=== PATIENT | female | born 1980 ===

== ENCOUNTER → 2017-01-26 | Outpatient (CLI) | payer BC ==
[~2017-01-26] MED LIST: IBUP-103 PO
--- NOTE | 2017-01-26 13:04 | MAMMOGRAPHY REPORT ---
UNILATERAL RIGHT DIGITAL DIAGNOSTIC MAMMOGRAM TOMOSYNTHESIS WITH CAD AND TARGETED BILATERAL ULTRASOUN CLINICAL HISTORY: 36-year-old woman presents for follow-up of right breast asymmetries. She currentl y reports lumps along the superior aspect of each breast. TECHNIQUE: Right breast tomosynthesis in addition to standard 2D mammography was performed. Current shyanne wilhelm was also evaluated with a Computer Aided Detection (CAD) system. COMPARISON: Comparison is made to exams dated: 07/28/2016 ultrasound, 07/28/2016 mammogram, and 07/01 mammogram - [facility]. BREAST COMPOSITION: The tissue of the right breast is heterogeneously dense, which may obscure small masses. FINDINGS: There is stable focal asymmetry occupying the upper outer middle and posterior right breas t. An asymmetry in the inferior middle one third of the right breast is less conspicuous comparing t o the 07/15/2016 mammograms. There are a few stable benign-appearing punctate microcalcifications. No new suspicious mass, architectural distortion or suspicious microcalcifications are identified in the right breast. Targeted ultrasound was performed in a horizontal band along the superior right breast, 3 cm from the nipple from the 10:00 through 2:00 axes. Additional targeted ultrasound was performed in the left 1 :00 and 2:00 breast in the area of palpable lumps. Incidental note is made of 2 tiny anechoic oval c ysts in the 2:00 left breast, 3 cm from the nipple, measuring 3.5 and 3.1 mm. No suspicious solid ma ss is seen on targeted ultrasound in either breast. IMPRESSION: ACR-BI-RADS CATEGORY 3: PROBABLY BENIGN, TARGETED ULTRASOUND ACR-BI-RADS CATEGORY 3: PRO BABLY BENIGN 1. A focal asymmetry in the right upper outer quadrant is stable compared to prior mammograms. The u pper outer quadrant asymmetry most likely represents the patient's baseline parenchymal pattern, barreto [place] another six-month follow-up diagnostic mammogram is read amended to ensure longer stability. 2. An asymmetry in the inferior right breast is less conspicuous, confirming benignity. 3. Palpable lumps in each superior breast demonstrate no suspicious sonographic abnormality and are most compatible with dense glandular tissue. Clinical follow-up is also recommended. Six-month follow-up bilateral diagnostic mammograms and possible ultrasound are recommended. Approximately 10% of breast cancers are not detected with mammography. A negative mammographic report should not delay biopsy if a clinically suggestive mass is present. Anastasiia Bautista M.D. ay/:01/26/2017 09:26:10 Reliability Technologist: Tracy REAVES(Molly)(M), [facility] letter sent: Follow Up Recommended 3 BI-RADS Code: ACR-BI-RADS Category 3: Probably Benign Ultrasound BI-RADS: ACR-BI-RADS Category 3: Pr obably Benign
== END | disposition home or self-care (01) ==
LOC: C.MAMM 08:12
PROVIDERS: ATTEND Family Medicine
DX: N64.89 Other specified disorders of breast (principal); N63 Unspecified lump in breast

== ENCOUNTER → 2017-06-28 | Outpatient (CLI) | payer BC | END | disposition home or self-care (01) | LOC: C.PAPS 11:10 | PROVIDERS: ATTEND Family Medicine | DX: Z01.419 Encounter for gynecological examination (general) (routine) without abnormal findings (principal) ==

== ENCOUNTER → 2017-07-21 | Outpatient (CLI) | payer BC ==
[~2017-07-21] MED LIST changes: +MECL1TAB42 PO; +ONDA4TAB10 SL
--- NOTE | 2017-07-21 12:58 | DIAGNOSTIC IMAGING REPORT ---
PELVIC COMPLETE NON OB HISTORY: 36 years-old Female [id number] acute vaginal bleeding COMPARISON: None available TECHNIQUE: Multiple real-time sonographic images of the deep pelvic structures were obtained transabdominally and transvaginally assessing grayscale appearance, color and spectral flow FINDINGS: TRANSABDOMINAL: Anteflexed uterus measures 8.1 x 3.4 x 4.8 cm. Endometrium measures 0.5 cm. No adrenal mass lesion. TRANSVAGINAL: Small nabothian cysts measuring up to 3 mm. Endometrium is homogeneous, 4 mm. Uterus appears unremarkable. Left ovary measures 3.6 x 1.8 x 2.4 cm demonstrating normal follicular changes with arterial inflow documented. Right ovary is also unremarkable, 2.4 x 1.5 x 1.6 cm with arterial inflow documented. No significant free pelvic fluid. IMPRESSION: 1. Small nabothian cysts of the cervix. Otherwise unremarkable sonographic appearance of the uterus and endometrium. 2. Bilateral ovaries are within normal limits without evidence of torsion. The above report was generated using voice recognition software. It may contain grammatical, syntax or spelling errors. Electronically signed by: Franko Hagan M.D. 07/21/2017 12:57 PM Dictated Date/Time: 07/21/2017 12:53 PM
--- NOTE | 2017-07-28 09:21 | DIAGNOSTIC IMAGING REPORT ---
PELVIC COMPLETE NON OB HISTORY: 36 years-old Female [id number] acute vaginal bleeding COMPARISON: None available TECHNIQUE: Multiple real-time sonographic images of the deep pelvic structures were obtained transabdominally and transvaginally assessing grayscale appearance, color and spectral flow FINDINGS: TRANSABDOMINAL: Anteflexed uterus measures 8.1 x 3.4 x 4.8 cm. Endometrium measures 0.5 cm. No adrenal mass lesion. TRANSVAGINAL: Small nabothian cysts measuring up to 3 mm. Endometrium is homogeneous, 4 mm. Uterus appears unremarkable. Left ovary measures 3.6 x 1.8 x 2.4 cm demonstrating normal follicular changes with arterial inflow documented. Right ovary is also unremarkable, 2.4 x 1.5 x 1.6 cm with arterial inflow documented. No significant free pelvic fluid. IMPRESSION: 1. Small nabothian cysts of the cervix. Otherwise unremarkable sonographic appearance of the uterus and endometrium. 2. Bilateral ovaries are within normal limits without evidence of torsion. The above report was generated using voice recognition software. It may contain grammatical, syntax or spelling errors. Electronically signed by: Franko Hagan M.D. 07/21/2017 12:57 PM Dictated Date/Time: 07/21/2017 12:53 PM
== END | disposition home or self-care (01) ==
LOC: C.ULTR 12:01
PROVIDERS: ATTEND Family Medicine
DX: N93.9 Abnormal uterine and vaginal bleeding, unspecified (principal); N88.8 Other specified noninflammatory disorders of cervix uteri

== ENCOUNTER → 2017-07-28 | Outpatient (CLI) | payer BC ==
[~2017-07-28] MED LIST changes: -MECL1TAB42 PO; -ONDA4TAB10 SL
--- NOTE | 2017-07-28 14:52 | MAMMOGRAPHY REPORT ---
BILATERAL DIGITAL DIAGNOSTIC MAMMOGRAM TOMOSYNTHESIS WITH CAD: 07/28/2017 CLINICAL HISTORY: Six-month follow-up of right breast asymmetry. Due for routine mammography of the left breast. The patient reports no new lumps or other current complaints. TECHNIQUE: Breast tomosynthesis in addition to standard 2D mammography was performed. Current study was also evaluated with a Computer Aided Detection (CAD) system. Bilateral CC and MLO 2-D and tomosy nthesis images were obtained. COMPARISON: Comparison is made to exams dated: 01/26/2017 mammogram, 01/26/2017 ultrasound, 07/28/2016 ultrasound, 07/28/2016 mammogram, and 07/15/2016 mammogram - [facility]. BREAST COMPOSITION: The tissue of both breasts is heterogeneously dense, which may obscure small mas ses. FINDINGS: There are no suspicious masses, calcifications, or areas of architectural distortion noted in either breast. There has been no significant interval change compared to prior exams. Regional a symmetry in the right upper outer quadrant is stable dating back to the July 2016 exam and is nu ign and felt to represent normal fibroglandular tissue. Benign-appearing left breast calcifications are stable. IMPRESSION: ACR BI-RADS CATEGORY 2: BENIGN There is no mammographic evidence of malignancy in either breast. A 1 year screening mammogram is rec ommended unless otherwise clinically indicated. The patient has been verbally notified of the result s. Approximately 10% of breast cancers are not detected with mammography. A negative mammographic report should not delay biopsy if a clinically suggestive mass is present. Melissa Yost M.D. ah/:07/28/2017 13:50:35 Services Coordinator: Erika WYNN)(Ekaterina), [facility] letter sent: Normal 1/2 BI-RADS Code: ACR BI-RADS Category 2: Benign
== END | disposition home or self-care (01) ==
LOC: C.MAMM 13:32
PROVIDERS: ATTEND Family Medicine
DX: N64.89 Other specified disorders of breast (principal)

== ENCOUNTER 2017-09-03 13:03 | Emergency (ER) | payer BC ==
[~2017-09-03] VITALS: Ht 162.6 cm; Wt 54.8 kg
[2017-09-03 13:08] VITALS: TEMP 36.3; Ht 162.6 cm; Wt 54.8 kg
[2017-09-03] MEDS ORDERED: MECLIZINE HCL 25 MG TAB PO STA (13:29)
[2017-09-03] MEDS ORDERED: SODIUM CHLORIDE 0.9% 1000ML 1,000 ML IV STA (13:29)
[2017-09-03] MEDS ORDERED: ONDANSETRON 8 MG/54 ML D5W IV STA (13:29)
--- NOTE | 2017-09-03 13:48 | DIAGNOSTIC IMAGING REPORT ---
CHEST ONE VIEW PORTABLE CLINICAL HISTORY: EVALUATE ALTERED MENTAL STATUS/WEAKNESS COMPARISON STUDY: Chest radiograph May 25, 2013. FINDINGS: Nipple shadow projects over the left lower lung. Lung volumes are normal. No pneumothorax or pleural effusion is noted. Pulmonary vascularity is normal. Cardiomediastinal silhouette is normal. IMPRESSION: No acute cardiopulmonary findings. Electronically signed by: Rashawn Salinas M.D. 09/03/2017 1:47 PM Dictated Date/Time: 09/03/2017 1:46 PM
[2017-09-03 14:02] LABS: BASO % 0.5 %; BASO ABS # 0.03 K/uL (0-0.2); EOS % 2.1 %; EOS ABS # 0.13 K/uL (0-0.5); HEMATOCRIT 44.6 % (37-47); HEMOGLOBIN 14.6 g/dL (12.0-16.0); IG# 0.01 K/uL (0.00-0.02); LYMPH % 22.5 %; LYMPH ABS # 1.36 K/uL (1.2-3.4); MEAN CELL VOLUME 88.7 fL (80-100); MEAN CORPUSCULAR HGB CONC 32.7 g/dl (32-36); MEAN PLATELET VOLUME 11.1 fL (7.4-10.4); MONO % 5.3 %; MONO ABS # 0.32 K/uL (0.11-0.59); NEUT % 69.4 %; PLATELET COUNT 222 K/uL (130-400); RED CELL DISTRIBUTION WIDTH CV 12.9 % (11.5-14.5); RED CELL DISTRIBUTION WIDTH SD 41.4 fL (36.4-46.3); WHITE BLOOD COUNT 6.05 K/uL (4.8-10.8)
--- NOTE | 2017-09-03 14:15 | DIAGNOSTIC IMAGING REPORT ---
CT OF THE HEAD WITHOUT CONTRAST CLINICAL HISTORY: Altered mental status. Weakness. Dizzy. COMPARISON STUDY: No previous studies for comparison. CT DOSE: 537.48 mGy.cm TECHNIQUE: Helical axial images of the head were obtained without IV contrast. Automated exposure control was utilized for the study. A dose lowering technique was utilized adhering to the principles of ALARA. FINDINGS: No acute intracranial hemorrhage, midline shift or mass effect is present. Brain volume is normal. Ventricular system is normal. The basilar cisterns are patent. There are no extra-axial collections. Good-white differentiation is maintained. There are no findings to suggest acute dural sinus thrombosis or acute territorial infarct. There are no significant calvarial abnormalities. Visualized portions of the sinuses and the mastoid air cells are clear. IMPRESSION: No acute intracranial findings. Electronically signed by: Rashawn Salinas M.D. 09/03/2017 2:13 PM Dictated Date/Time: 09/03/2017 2:11 PM
[2017-09-03 14:19] LABS: ALBUMIN 4.1 gm/dl (3.4-5.0); ALT/SGPT 33 U/L (12-78); BLOOD UREA NITROGEN 12 mg/dl (7-18); CALCIUM 8.9 mg/dl (8.5-10.1); CARBON DIOXIDE 28 mmol/L (21-32); CREATININE 0.69 mg/dl (0.60-1.20); GLUCOSE 100 mg/dl (70-99); LIPASE 122 U/L (73-393); POTASSIUM 3.5 mmol/L (3.5-5.1); SODIUM 137 mmol/L (136-145)
[2017-09-03 14:27] LABS: ALKALINE PHOSPHATASE 61 U/L (45-117); AST/SGOT 23 U/L (15-37); CKMB 1.3 ng/ml (0.5-3.6); TOTAL PROTEIN 7.2 gm/dl (6.4-8.2)
[2017-09-03 15:32] VITALS: BP 100/53; PULSE 68; O2SAT 98
--- NOTE | 2017-09-03 15:34 | EMERGENCY ROOM VISIT NOTE ---
History Report prepared by Didi: Luis Pardo Under the Supervision of: Dr. Leoncio Lynn D.O. First contact with patient: 13:15 Chief Complaint: VOMITING Stated Complaint: DIZZINESS,VOMITING,FAINT,EKG ABNORMAL, DOC REFERRE History of Present Illness The patient is a 36 year old female who presents to the Emergency Room with complaints of vertigo that began 2 days ago. She states she was sleeping when she woke up feeling dizzy. She states that she feels like the room is spinning and complains of nausea and vomiting. She is unable to walk upright because she feels like the room is tilting. She states that she had similar episodes of dizziness that occurred 2 years ago. She states she went to urgent care where they said her EKG was abnormal and that she should come to the ED. Source of History: patient Onset: 2 days ago Position: other (global) Timing: constant Modifying Factors (Relieving): movement Associated Symptoms: + nausea, + vomiting Note: Patient complains fo dizziness and previous episodes. Review of Systems See HPI for pertinent positives & negatives. A total of 10 systems reviewed and were otherwise negative. Social History Smoking Status: Never Smoker Marital Status: Current/Historical Medications No Active Prescriptions or Reported Meds Allergies Coded Allergies: Penicillins (Verified Allergy, Unknown, RASH, 09/03/17) Physical Exam Vital Signs Date Time Temp Pulse Resp B/P (MAP) Pulse Ox O2 Delivery O2 Flow Rate FiO2 09/03/17 15:32 68 20 100/53 98 09/03/17 13:44 64 09/03/17 13:08 36.3 59 17 117/80 100 Room Air Physical Exam VITAL SIGNS: were reviewed as above. GENERAL:Non-toxic in appearance. SKIN: Warm dry and pink. HEAD: Normocephalic and atraumatic. OROPHARYNX: Is clear and moist NECK: Supple without lymphadenopathy or meningismus. LUNGS: clear. HEART: Regular rate and rhythm. ABDOMEN: Soft and nontender. EXTREMITIES: Warm and well perfused. NEUROLOGICALLY: Awake alert and oriented without focal deficit. Cranial nerves 2 -12 are intact. There is no pronator drift. Cerebellar testing is within normal limits. There is no nystagmus. There is no facial droop. Speech is clear. Vision is grossly normal. MUSCULOSKELETAL: Good muscle tone. No evidence of trauma. Medical Decision & Procedures ER Provider Diagnostic Interpretation: Radiology results as stated below per my review and radiologist interpretation: CHEST ONE VIEW PORTABLE CLINICAL HISTORY: EVALUATE ALTERED MENTAL STATUS/WEAKNESS COMPARISON STUDY: Chest radiograph May 25, 2013. FINDINGS: Nipple shadow projects over the left lower lung. Lung volumes are normal. No pneumothorax or pleural effusion is noted. Pulmonary vascularity is normal. Cardiomediastinal silhouette is normal. IMPRESSION: No acute cardiopulmonary findings. Electronically signed by: Rashawn Salinas M.D. 09/03/2017 1:47 PM Dictated Date/Time: 09/03/2017 1:[address] OF THE HEAD WITHOUT CONTRAST CLINICAL HISTORY: Altered mental status. Weakness. Dizzy. COMPARISON STUDY: No previous studies for comparison. CT DOSE: 537.48 mGy.cm TECHNIQUE: Helical axial images of the head were obtained without IV contrast. Automated exposure control was utilized for the study. A dose lowering technique was utilized adhering to the principles of ALARA. FINDINGS: No acute intracranial hemorrhage, midline shift or mass effect is present. Brain volume is normal. Ventricular system is normal. The basilar cisterns are patent. There are no extra-axial collections. Good-white differentiation is maintained. There are no findings to suggest acute dural sinus thrombosis or acute territorial infarct. There are no significant calvarial abnormalities. Visualized portions of the sinuses and the mastoid air cells are clear. IMPRESSION: No acute intracranial findings. Electronically signed by: Rashawn Salinas M.D. 09/03/2017 2:13 PM Dictated Date/Time: 09/03/2017 2:11 PM Laboratory Results 09/03/17 13:50 Red Blood Count 5.03, Mean Corpuscular Volume 88.7, Mean Corpuscular Hemoglobin 29.0, Mean Corpuscular Hemoglobin Concent 32.7, Mean Platelet Volume 11.1, Neutrophils (%) (Auto) 69.4, Lymphocytes (%) (Auto) 22.5, Monocytes (%) (Auto) 5.3, Eosinophils (%) (Auto) 2.1, Basophils (%) (Auto) 0.5, Neutrophils # (Auto) 4.20, Lymphocytes # (Auto) 1.36, Monocytes # (Auto) 0.32, Eosinophils # (Auto) 0.13, Basophils # (Auto) 0.03 09/03/17 13:50 Test 09/03/17 13:50 09/03/17 14:30 White Blood Count 6.05 K/uL (4.8-10.8) Red Blood Count 5.03 M/uL (4.2-5.4) Hemoglobin 14.6 g/dL (12.0-16.0) Hematocrit 44.6 % (37-47) Mean Corpuscular Volume 88.7 fL (80-100) Mean Corpuscular Hemoglobin 29.0 pg (25-34) Mean Corpuscular Hemoglobin Concent 32.7 g/dl (32-36) Platelet Count 222 K/uL (130-400) Mean Platelet Volume 11.1 fL (7.4-10.4) Neutrophils (%) (Auto) 69.4 % Lymphocytes (%) (Auto) 22.5 % Monocytes (%) (Auto) 5.3 % Eosinophils (%) (Auto) 2.1 % Basophils (%) (Auto) 0.5 % Neutrophils # (Auto) 4.20 K/uL (1.4-6.5) Lymphocytes # (Auto) 1.36 K/uL (1.2-3.4) Monocytes # (Auto) 0.32 K/uL (0.11-0.59) Eosinophils # (Auto) 0.13 K/uL (0-0.5) Basophils # (Auto) 0.03 K/uL (0-0.2) RDW Standard Deviation 41.4 fL (36.4-46.3) RDW Coefficient of Variation 12.9 % (11.5-14.5) Immature Granulocyte % (Auto) 0.2 % Immature Granulocyte # (Auto) 0.01 K/uL (0.00-0.02) Anion Gap 6.0 mmol/L (3-11) Est Creatinine Clear Calc Drug Dose 96.5 ml/min Estimated GFR () 128.9 Estimated GFR (Non- 111.2 BUN/Creatinine Ratio 17.1 (10-20) Calcium Level 8.9 mg/dl (8.5-10.1) Magnesium Level 2.1 mg/dl (1.8-2.4) Total Bilirubin 0.5 mg/dl (0.2-1) Direct Bilirubin 0.1 mg/dl (0-0.2) Aspartate Amino Transf (AST/SGOT) 23 U/L (15-37) Alanine Aminotransferase (ALT/SGPT) 33 U/L (12-78) Alkaline Phosphatase 61 U/L (45-117) Total Creatine Kinase 82 U/L (26-192) Creatine Kinase MB 1.3 ng/ml (0.5-3.6) Creatine Kinase MB Ratio 1.6 (0-3.0) Troponin I < 0.015 ng/ml (0-0.045) Total Protein 7.2 gm/dl (6.4-8.2) Albumin 4.1 gm/dl (3.4-5.0) Lipase 122 U/L (73-393) Thyroid Stimulating Hormone (TSH) 1.420 uIu/ml (0.300-4.500) Human Chorionic Gonadotropin, Qual NEG (NEG) Laboratory results as stated above per my review. Medications Administered Medications (Trade) Dose Ordered Sig/Gloria Route Start Time Stop Time Status Last Admin Dose Admin Sodium Chloride 1,000 ml @ 999 mls/hr Q1H1M STAT IV 09/03/17 13:29 09/03/17 14:29 DC 09/03/17 13:47 999 MLS/HR Meclizine HCl (Antivert Tab) 25 mg NOW STAT PO 09/03/17 13:29 09/03/17 13:32 DC 09/03/17 13:47 25 MG Ondansetron HCl (Zofran 8mg Iv) 8 mg NOW STAT IV 09/03/17 13:29 09/03/17 13:32 DC 09/03/17 13:29 8 MG ECG Indication: nausea, vomiting Rate (beats per minute): 51 Rhythm: sinus bradycardia Findings: no ectopy, other (No acute injury) Change: Patient's EKG interpreted by me. ED Course 1315: Previous medical records were reviewed. The patient was evaluated in room C9. A complete history and physical examination was performed. 1329: Zofran 8mg IV, Antivert Tab 25 mg PO, Sodium Chloride 1000 ml @ 999 mls/ hr IV. 1535: On reevaluation, the patient is doing well. I discussed the results and findings with the patient. She verbalized agreement of the treatment plan. She was discharged home. Medical Decision differential includes acute intracranial pathology, intracranial bleed, mass, anemia, electrolyte disturbance, peripheral vertigo, central vertigo, CVA, TIA, intra-abdominal pathologic such as pancreatitis, dehydration, trauma.. These are 36-year-old female who presents to the ED with a chief complaint of vertigo, nausea and vomiting. The patient states that her symptoms started 2 nights ago. She awoke with vertigo and nausea as well as some vomiting. She had the symptoms yesterday and it seemed to be worse with movement. Improve somewhat in the afternoon and then return in the evening. Last night she reports some nausea, dizziness and diaphoresis as well as some vomiting related to her symptoms. Today she states that her symptoms are worsened with movement of her head. The patient's neurologic and physical exam were unremarkable. She has no nystagmus. No focal deficits. Her vital signs are stable. EKG shows a sinus bradycardia rate of 51. CBC is normal, complete metabolic panel was normal, troponin was negative and hCG was negative. CT scan of the brain was negative for acute disease. The patient was treated with IV Zofran as well as IV fluids and by mouth meclizine. The Pooja maneuver was performed on the patient by the family practice resident. The patient was given instructions on how to do this at home. Her symptoms did improve with treatment. She is felt to be stable for discharge and outpatient follow-up. Medication Reconcilliation Current Medication List: was personally reviewed by me Blood Pressure Screening Patient's blood pressure: Normal blood pressure Blood pressure disposition: Did not require urgent referral Impression Primary Impression: Vertigo Scribe Attestation The scribe's documentation has been prepared under my direction and personally reviewed by me in its entirety. I confirm that the note above accurately reflects all work, treatment, procedures, and medical decision making performed by me. Departure Information Dispostion Home / Self-Care Prescriptions No Active Prescriptions or Reported Meds Referrals Mansi Santamaria DO (PCP) Patient Instructions ED BPV Vertigo, ED Vertigo Unspecified, My [facility] Additional Instructions Due to the maneuvers as described. Meclizine as needed/as prescribed for dizziness. Zofran: Allow one tablet to dissolve under the tongue every 6 hours as needed for nausea or vomiting. Follow-up with your doctor for further care and evaluation in 3-5 days if symptoms persist. Return to the emergency department for worsening or new symptoms or any concerns. You have been examined and treated today on an emergency basis only. This is not a substitute for, or an effort to provide, complete comprehensive medical care. It is impossible to recognize and treat all injuries or illnesses in a single emergency department visit. It is therefore important that you follow up closely with your doctor. Call as soon as possible for an appointment.
[2017-09-03] MEDS ORDERED: MECL1TAB42 PO (15:39)
[2017-09-03] MEDS ORDERED: ONDA4TAB10 SL (15:39)
== END 2017-09-03 15:46 | disposition home or self-care (01) ==
LOC: C.EDB 13:05 → C.EDC 15:46
DX: R42 Dizziness and giddiness (principal); R11.2 Nausea with vomiting, unspecified